=== PATIENT | female | born 1985 | race Caucasian/White ===

== ENCOUNTER → 2019-01-08 | Outpatient (CLI) | payer OTHER, SELFPAY ==
[2019-01-08 10:44] LABS: Absolute Lymphocyte Count 2.36 X10^3/uL (0.83-4.51); Absolute Neutrophil Count 6.2 X10^3/uL (2.0-7.7); Basophil# 0.06 X10^3/uL; Basophil% 0.7 % (0-1); Eosinophil# 0.24 X10^3/uL; Eosinophils% 2.6 % (0-5); Hematocrit 38.3 % (37-47); Hemoglobin 12.5 g/dL (12.0-15.0); Lymphocyte # 2.36 X10^3/ul (4.0); Lymphocyte % 25.6 % (19-41); Mean Corp Hgb Conc 32.6 g/dL (32-36); Mean Corpuscular Hgb 28.8 pg (27.0-32.0); Mean Corpuscular Volume 88.2 fL (81-99); Mean Platelet Vol. 10.4 fl (6.2-12.0); Monocyte# 0.39 X10^3/uL; Monocyte% 4.2 % (0-10); NRBC Flagged by Analyzer 0 % (0-5); Neutrophil # 6.16 X10^3/uL (2.7-7.7); Neutrophil % 66.7 % (47-70); Platelet Count 341 K/mm3 (150-450); RBC Distribution Width CV 12.6 % (11.6-14.6); RBC Distribution Width SD 40.8 fl (35.1-43.9); Red Blood Count 4.34 M/mm3 (4.2-5.4); White Blood Count 9.2 K/mm3 (4.4-11.0)
[2019-01-08 11:05] LABS: Amphetamine Urine VISTA NEGATIVE (<1000 ng/mL); Barbiturate Urine VISTA NEGATIVE (< 200 ng/mL); Benzodiazepine Urine VISTA NEGATIVE (< 200 ng/mL); Cocaine Urine VISTA NEGATIVE (< 300 ng/mL); Ecstacy Urine VISTA NEGATIVE (< 500 ng/mL); Methadone Urine VISTA NEGATIVE (< 300 ng/mL); PCP Urine VISTA NEGATIVE (< 25 ng/mL); THC Urine VISTA NEGATIVE (< 50 ng/mL); Vista UDS pH Range 5
[2019-01-08 11:22] LABS: ALB/GLOB Ratio 0.6 RATIO (0.9-2.4); AST(SGOT) 13 U/L (15-37); Alanine Aminotransfer ALT/SGPT 13 U/L (13-56); Albumin, Serum 2.8 g/dL (3.2-5.0); Alkaline Phosphatase 116 U/L (45-117); Anion Gap 8 (5-15); BUN 10 mg/dL (7-18); Calcium,Total 8.4 mg/dL (8.5-10.1); Chloride 111 mmol/L (98-107); Cholesterol 197 mg/dL (200); Creatinine, Serum 0.91 mg/dL (0.55-1.02); EST Glomerular Filtration Rate 75 mL/min (>60); Est Glom Filt Rate - Afr Amer 91 mL/min (>60); Globulin 4.6 g/dL (2.2-4.2); Glucose 88 mg/dL (74-106); High Density Lipoprotein 59 mg/dL; Potassium 3.9 mmol/L (3.5-5.1); Protein, Total 7.4 g/dL (6.4-8.2); Sodium Level 141 mmol/L (136-145); Thyroid Stim Hormone (TSH) 3.02 uIU/mL (0.358-3.74); Triglycerides 110 mg/dL; Very Low Density Lipoprotein 22 mg/dL (5-40)
[2019-01-12 09:31] LABS: Amphetamine Ur Confirm Negative (Cutoff=500)
== END | disposition home or self-care (01) ==
LOC: MFPLAB 09:03
PROVIDERS: Family Provider Family Medicine; PCP Family Medicine; Referring Provider Family Medicine; Visit Provider Family Medicine
DX: E78.5 Hyperlipidemia, unspecified (principal); E66.01 Morbid (severe) obesity due to excess calories; L65.9 Nonscarring hair loss, unspecified; F50.81 Binge eating disorder
CPT/HCPCS: 36415; 80053; 80061; 80307; 84443; 85025

== ENCOUNTER 2020-06-09 08:45 | Day surgery (SDC) | payer OTHER, SELFPAY ==
[2020-05-27 09:02] VITALS: BMI 42.8
[2020-06-09] VITALS (8 sets, daily range): BP systolic 82–115; BP diastolic 52–80; PULSE 66–86; RESP 16; TEMP 36.1–36.6; O2SAT 94–98; BMI 42.5
--- NOTE | 2020-06-09 05:18 | HP_ITS ---
Intake Vital Signs 05/27/20 Height 5 ft 4.25 in 05/27/20 Weight: 251 lb 9 oz 05/27/20 BMI 42.8 05/27/20 BP 132/85 H 05/27/20 Blood Pressure Location Rt brachial 05/27/20 Position Sitting 05/27/20 Respiration 20 H 05/27/20 Pulse 90 05/27/20 Pulse Source NIBP 05/27/20 Temp 97.1 F L 05/27/20 Temp Source Temporal 05/27/20 Pulse Oximetry (%) 99 05/27/20 Oxygen Delivery Method room air Intake Visit Reasons: EGD Chief Complaint: globus sensation Ui Ux Web Developer Required: No Is patient in pain?: No Allergies codeine Adverse Reaction (Mild, Verified 05/27/20 09:03) vomiting Medications buspirone 15 mg tablet 15 mg PO BID tab 05/27/20 [History Confirmed 05/27/20] etonogestrel 0.12 mg-ethinyl estradiol 0.015 mg/24 hr vaginal ring 1 vag ring VAGINAL ea 05/27/20 [History Confirmed 05/27/20] lisdexamfetamine 70 mg capsule 70 mg PO DAILY cap 05/27/20 [History Confirmed 05/27/20] Is last menstrual period known: No Post menopausal: No Patient : No PFSH Medical History Anxiety (Acute) Globus sensation (Acute) Surgical History History of hand surgery (Acute) Family History Mother Diabetes Father Cancer prostate Social History (Updated 05/27/20 @ 09:[address] Gilberto Leo MD) Smoking Status: Never smoker HPI HPI HPI: ANDRÉS VILLASENOR, is a 34 F who presents to the office today for HPI HPI Surgical H&P: Yes HPI: ANDRÉS VILLASENOR, is a 34 F who presents to the office today for Evaluation of a globus sensation something in her upper esophagus. This is been going on for better than a year. She has not had any obvious obstructive symptoms. They have tried Flonase as well as PPIs and has had no results from this she cannot state definitively that she has any reflux of symptoms she has not had any food stuck in her esophagus as of yet. She has never had a EGD nor has she had a barium swallow. In addition she has not seen ear nose and throat either. ROS General General: Yes weight change; no appetite, fatigue, colon cancer, breast cancer or weakness HEENT HEENT: Yes difficulty swallowing; no eye injury, eye surgery, swollen glands or hoarseness Endo Endocrine: No thyroid disease, diabetes mellitus, thyroid cancer, Hair loss, heat intolerance or cold intolerance Musc Musculoskeletal: No back problems, arthritis, rheumatoid arthritis, gout or joint pain Cardio Cardiovascular: No murmur, pacemaker, heart disease, atrial fibrillation, high blood pressure, heart attack, heart stent, palpitations, shortness of breat with exertion or chest pain Psych Psychiatric: Yes anxiety; no depression or hearing voices Resp Respiratory: No shortness of breath, No sleep apnea, No cough, No COPD, No asthma, No emphysema, No wheezing Gastro Gastrointestinal: No abdominal pain, No nausea or vomiting, No diarrhea, No constipation, No blood in stool, No acid reflux, No hemorrhoids, No ulcers, No gallbladder problem, No black,tarry stools José Antonio Hematologic: No blood thinners, No blood disorders, No bleeding, No anemia, No blood clots Neuro Neurologic: No weakness Exam Const General: no acute distress, well developed, well hydrated Orientation: oriented to person, oriented to place, oriented to time [facility] Head: normocephalic, atraumatic Ears: external ears normal Mouth: moist mucous membranes Eyes Sclera: sclerae normal Pupils: normal by confrontation Neck Neck: no lymphadenopathy noted Neck mass: No Thyroid: thyroid normal, symmetrical Chest Chest palpation & inspection: normal inspection of the chest Resp Effort & Inspection: normal respiratory effort Auscultation: clear to auscultation bilaterally Percussion: percussion normal Cardio Rate: regular rate Rhythm: regular rhythm Heart Sounds: no murmurs GI Palpation: soft, no hepatosplenomegaly, no masses, nontender Rectal Exam: other Other: Rectal exam deferred. Extrem General: normal to inspection, no clubbing, cyanosis or edema Assessment & Plan Problems 1. Oropharyngeal dysphagia R13.12 Plan I have discussed the above with the patient. I have offered the patient esophagogastroduodenoscopy for evaluation. I have explained the risks/benefits of the procedure and described the procedure. I have discussed the risks with the patient, including but not limited to: infection, bleeding, perforation of the GI tract requiring emergency surgery, inability to complete the procedure, injury to any internal organs, complications of anesthesia, etc. - the patient understands and agrees to proceed. I have answered all the patient's questions to the patient's satisfaction and the patient has no further questions. The patient has been given instructions for the colon cleansing preparation. Coding Level of Care Code Off vis,new,level 3 Diagnoses Oropharyngeal dysphagia R13.12 ??Dysphagia type: oropharyngeal phase COVID (Procedure Consent) Procedure Criteria Procedure Criteria: Yes Elective The surgeon/proceduralist and patient have discussed in detail the risk of exposure to and/or potential harm posed by the COVID-19 virus with having a surgery/procedure at this time versus the risk of? delaying the surgery/procedure. It is not possible to know either the risk of delaying the surgery or procedure or chance of getting an infection with perfect accuracy, but a joint decision was made between the patient and the surgeon/proceduralist ?to proceed at this time with the scheduled surgery/procedure as indicated on the consent form.
[2020-06-09 09:13] LABS: Internal QC Validated? YES +Cl - CLEAR BKGD; Pregnancy, Urine Negative Negative
[2020-06-09] MEDS: Lactated Ringers 1,000 ML 100 ML IV (09:20)
--- NOTE | 2020-06-09 09:42 | HP.PCM_ITS ---
Problem List (1) Globus sensation Status: Acute History and Physical Date of Admission: 06/09/20 Intake Vital Signs 05/27/20 Height 5 ft 4.25 in 05/27/20 Weight: 251 lb 9 oz 05/27/20 BMI 42.8 05/27/20 BP 132/85 H 05/27/20 Blood Pressure Location Rt brachial 05/27/20 Position Sitting 05/27/20 Respiration 20 H 05/27/20 Pulse 90 05/27/20 Pulse Source NIBP 05/27/20 Temp 97.1 F L 05/27/20 Temp Source Temporal 05/27/20 Pulse Oximetry (%) 99 05/27/20 Oxygen Delivery Method room air Intake Visit Reasons: EGD Chief Complaint: globus sensation Signs And Displays Sales Representative Required: No Is patient in pain?: No Allergies codeine Adverse Reaction (Mild, Verified 05/27/20 09:03) vomiting Medications buspirone 15 mg tablet 15 mg PO BID tab 05/27/20 [History Confirmed 05/27/20] etonogestrel 0.12 mg-ethinyl estradiol 0.015 mg/24 hr vaginal ring 1 vag ring VAGINAL ea 05/27/20 [History Confirmed 05/27/20] lisdexamfetamine 70 mg capsule 70 mg PO DAILY cap 05/27/20 [History Confirmed 05/27/20] Is last menstrual period known: No Post menopausal: No Patient : No PFSH Medical History Anxiety (Acute) Globus sensation (Acute) Surgical History History of hand surgery (Acute) Family History Mother Diabetes Father Cancer prostate Social History (Updated 05/27/20 @ 09:[address] Gilberto Leo MD) Smoking Status: Never smoker HPI HPI HPI: ANDRÉS VILLASENOR, is a 34 F who presents to the office today for HPI HPI Surgical H&P: Yes HPI: ANDRÉS VILLASENOR, is a 34 F who presents to the office today for Evaluation of a globus sensation something in her upper esophagus. This is been going on for better than a year. She has not had any obvious obstructive symptoms. They have tried Flonase as well as PPIs and has had no results from this she cannot state definitively that she has any reflux of symptoms she has not had any food stuck in her esophagus as of yet. She has never had a EGD nor has she had a barium swallow. In addition she has not seen ear nose and throat either. ROS General General: Yes weight change; no appetite, fatigue, colon cancer, breast cancer or weakness HEENT HEENT: Yes difficulty swallowing; no eye injury, eye surgery, swollen glands or hoarseness Endo Endocrine: No thyroid disease, diabetes mellitus, thyroid cancer, Hair loss, heat intolerance or cold intolerance Musc Musculoskeletal: No back problems, arthritis, rheumatoid arthritis, gout or joint pain Cardio Cardiovascular: No murmur, pacemaker, heart disease, atrial fibrillation, high blood pressure, heart attack, heart stent, palpitations, shortness of breat with exertion or chest pain Psych Psychiatric: Yes anxiety; no depression or hearing voices Resp Respiratory: No shortness of breath, No sleep apnea, No cough, No COPD, No asthma, No emphysema, No wheezing Gastro Gastrointestinal: No abdominal pain, No nausea or vomiting, No diarrhea, No constipation, No blood in stool, No acid reflux, No hemorrhoids, No ulcers, No gallbladder problem, No black,tarry stools José Antonio Hematologic: No blood thinners, No blood disorders, No bleeding, No anemia, No b lood clots Neuro Neurologic: No weakness Exam Const General: no acute distress, well developed, well hydrated Orientation: oriented to person, oriented to place, oriented to time [facility] Head: normocephalic, atraumatic Ears: external ears normal Mouth: moist mucous membranes Eyes Sclera: sclerae normal Pupils: normal by confrontation Neck Neck: no lymphadenopathy noted Neck mass: No Thyroid: thyroid normal, symmetrical Chest Chest palpation & inspection: normal inspection of the chest Resp Effort & Inspection: normal respiratory effort Auscultation: clear to auscultation bilaterally Percussion: percussion normal Cardio Rate: regular rate Rhythm: regular rhythm Heart Sounds: no murmurs GI Palpation: soft, no hepatosplenomegaly, no masses, nontender Rectal Exam: other Other: Rectal exam deferred. Extrem General: normal to inspection, no clubbing, cyanosis or edema Assessment & Plan Problems 1. Oropharyngeal dysphagia R13.12 The patient was referred by Dr. Leo for endoscopy for this globus sensation she is having. I will perform an EGD today and if it is completely normal we will refer her to ENT for this globus sensation. Patient has been trying PPI to no avail. I explained endoscopy in detail to the patient. I explained the risks including but not limited to stroke or heart attack with anesthesia, perforation of the GI tract, bleeding, infection. I explained that any of these could necessitate further emergency surgery. The patient understands and all questions were answered sufficiently. The patient wishes to proceed with procedure. Benjie Buenrostro MD Pager: [facility] [address] [place] [address], [address] [place] [address] Office:
--- NOTE | 2020-06-09 09:55 | OP.CCLET_ITS ---
06/09/2020 Bhaskar Augustin [address] [place] [address] Re : Upper GI endoscopy procedure for Carmelina Billings Dear Dr. Augustin This procedure was performed on Tuesday, June 09, 2020. My impressions and recommendations are as follows: Impressions : - Normal esophagus. - Normal stomach. - Normal examined duodenum. - No specimens collected. Recommendations : - Discharge patient to home. - Resume previous diet. - Continue present medications. - Refer to an ENT specialist. My findings are described in the full procedure note, which is enclosed. If I can be of further assistance, please feel free to contact me at Doctor phone number(s): , Work: . Sincerely, Benjie Buenrostro MD 06/09/2020 9:55:07 AM This report has been signed electronically.
--- NOTE | 2020-06-09 09:55 | OP.EGD_ITS ---
Patient Name: Carmelina Billings Procedure Date: 06/09/2020 9:40 AM Date of : 1985 Age: 34 Procedure: Upper GI endoscopy Indications: Globus sensation Providers: Benjie Buenrostro MD Referring MD: Bhaskar Augustin Medicines: Monitored Anesthesia Care Patient Profile: This is a 34 year old female. Refer to note in patient chart for documentation of history and physical. Complications: No immediate complications. Procedure: Pre-Anesthesia Assessment: - Prior to the procedure, a History and Physical was performed, and patient medications and allergies were reviewed. The patient's tolerance of previous anesthesia was also reviewed. The risks and benefits of the procedure and the sedation options and risks were discussed with the patient. All questions were answered, and informed consent was obtained. Prior Anticoagulants: The patient has taken no previous anticoagulant or antiplatelet agents. After reviewing the risks and benefits, the patient was deemed in satisfactory condition to undergo the procedure. After obtaining informed consent, the endoscope was passed under direct vision. Throughout the procedure, the patient's blood pressure, pulse, and oxygen saturations were monitored continuously. The gastroscope was introduced through the mouth, and advanced to the second part of duodenum. The upper GI endoscopy was accomplished without difficulty. The patient tolerated the procedure well. Scope In: 9:48:23 AM Scope Out: 9:50:14 AM Total Procedure Duration Time 0 hours 1 minute 51 seconds Findings: The esophagus was normal. The stomach was normal. The examined duodenum was normal. Impression: - Normal esophagus. - Normal stomach. - Normal examined duodenum. - No specimens collected. Recommendation: - Discharge patient to home. - Resume previous diet. - Continue present medications. - Refer to an ENT specialist. Procedure Code(s): --- Professional --- 05183, Esophagogastroduodenoscopy, flexible, transoral; diagnostic, including collection of specimen(s) by brushing or washing, when performed (separate procedure) Diagnosis Code(s): --- Professional --- F45.8, Other somatoform disorders CPT copyright 2017 [employer]. All rights reserved. The codes documented in this report are preliminary and upon cloth mercerizer operator review may be revised to meet current compliance requirements. Benjie Buenrostro MD 06/09/2020 9:55:07 AM This report has been signed electronically. Number of Addenda: 0 Note Initiated On: 06/09/2020 9:40 AM
== END 2020-06-09 11:15 | disposition home or self-care (01) ==
LOC: EN 08:45 → AC 08:46
PROVIDERS: Anesthesiology; PCP Family Medicine; Referring Provider Family Medicine; Visit Provider Surgery
PROC: 0DJ08ZZ Inspection of Upper Intestinal Tract, Via Natural or Artificial Opening Endoscopic (ICD-10-PCS; CPT 43235; principal; 2020-06-09 09:40)
DX: F45.8 Other somatoform disorders (principal); Z20.828 Contact with and (suspected) exposure to other viral communicable diseases; F41.9 Anxiety disorder, unspecified; F32.9 Major depressive disorder, single episode, unspecified; Z79.899 Other long term (current) drug therapy
CPT/HCPCS: 43235; 81025; 87426; C9803; J7120; J2405

== ENCOUNTER → 2021-04-29 | Outpatient (CLI) | payer OTHER, SELFPAY | END | disposition home or self-care (01) | PROVIDERS: PCP Family Medicine; Visit Provider Family Medicine | DX: B34.9 Viral infection, unspecified (principal) | CPT/HCPCS: 87635; U0005; U0003 ==

== ENCOUNTER → 2023-12-19 | Outpatient (CLI) | payer BC, SELFPAY ==
--- NOTE | 2023-12-19 16:25 | RAD_ITS ---
INDICATION: pain EXAMINATION/TECHNIQUE: X-RAY - RIGHT XR Knee Complete 4 Views or More COMPARISON: None. FINDINGS: SOFT TISSUES: Unremarkable. BONES/JOINTS: No fracture or dislocation. No significant degenerative changes. No erosive changes. RAD/Knee 4 or More Views IMPRESSION: Unremarkable views of the right knee. Electronically Signed: Kaiden Burkett DO at 2:18 EDT ,
== END | disposition home or self-care (01) ==
LOC: MTRAD 16:19
PROVIDERS: PCP Family Medicine; Referring Provider Nurse Practitioner Family; Visit Provider Nurse Practitioner Family
DX: M25.561 Pain in right knee (principal)
CPT/HCPCS: 73564

== ENCOUNTER → 2024-02-21 | Outpatient (CLI) | payer BC, SELFPAY ==
[2024-02-21 13:01] LABS: ALB/GLOB Ratio 0.7 RATIO (0.9-2.4); AST(SGOT) 11 U/L (15-37); Absolute Lymphocyte Count 2.85 X10^3/uL (0.83-4.51); Absolute Neutrophil Count 5.4 X10^3/uL (2.0-7.7); Alanine Aminotransfer ALT/SGPT 15 U/L (13-56); Alkaline Phosphatase 93 U/L (45-117); Anion Gap 8 (5-15); BUN 12 mg/dL (7-18); BUN/Creat Ratio 13.4 RATIO (10-20); Basophil# 0.06 X10^3/uL; Basophil% 0.7 % (0-1); Chloride 105 mmol/L (98-107); Cholesterol 276 mg/dL (200); Creatinine, Serum 0.89 mg/dL (0.55-1.02); EST Glomerular Filtration Rate 75 mL/min (>60); Eosinophil# 0.21 X10^3/uL; Eosinophils% 2.4 % (0-5); Est Glom Filt Rate - Afr Amer 90 mL/min (>60); Globulin 4.1 g/dL (2.2-4.2); Glucose 116 mg/dL (74-106); Hematocrit 40.1 % (37-47); High Density Lipoprotein 65 mg/dL; Lymphocyte # 2.85 X10^3/ul (0.83-4.51); Mean Corp Hgb Conc 32.4 g/dL (32-36); Mean Corpuscular Hgb 29.2 pg (27.0-32.0); Mean Corpuscular Volume 90.1 fL (81-99); Mean Platelet Vol. 9.9 fl (6.2-12.0); Monocyte% 4.5 % (0-10); NRBC Flagged by Analyzer 0 % (0-5); Neutrophil # 5.36 X10^3/uL (2.7-7.7); Neutrophil % 60.1 % (47-70); Platelet Count 390 K/mm3 (150-450); Potassium 3.8 mmol/L (3.5-5.1); Protein, Total 7.1 g/dL (6.4-8.2); RBC Distribution Width CV 13.2 % (11.6-14.6); RBC Distribution Width SD 43.3 fl (35.1-43.9); Red Blood Count 4.45 M/mm3 (4.2-5.4); Rheumatoid Factor < 10.0 IU/mL (<15); Sodium Level 139 mmol/L (136-145); Triglycerides 185 mg/dL; Very Low Density Lipoprotein 37 mg/dL (5-40); White Blood Count 8.9 K/mm3 (4.4-11.0)
[2024-02-21 13:15] LABS: Erythrocyte Sedimentation Rate 11 mm/hr (0-30)
[2024-02-22 11:10] LABS: ANTINUCLEAR ANTIBODIES DIRECT Negative (Negative)
[2024-02-22 12:23] LABS: Hemoglobin A1c 5.4 % (3.8-5.6)
== END | disposition home or self-care (01) ==
LOC: MTLAB 10:42
PROVIDERS: PCP Family Medicine; Referring Provider Family Medicine; Visit Provider Family Medicine
DX: R73.09 Other abnormal glucose (principal); E78.5 Hyperlipidemia, unspecified; M25.50 Pain in unspecified joint
CPT/HCPCS: 36415; 80053; 80061; 83036; 84443; 85025; 85652; 86038; 86431

== ENCOUNTER → 2024-03-14 | Outpatient (CLI) | payer BC, SELFPAY ==
--- NOTE | 2024-03-14 10:10 | RAD_ITS ---
STUDY: X-RAY - RIGHT HAND REASON FOR EXAM: Female, 38 years old. Pain. TECHNIQUE: 3 views of the right hand. COMPARISON: None. FINDINGS: Normal radiocarpal articulation. Normal distal radioulnar joint. Normal visualized carpal bones. Normal carpal articulations Normal carpometacarpal articulation of the thumb. Normal second through fifth carpometacarpal joints. Normal metacarpi. Normal metacarpophalangeal joint of the thumb. Normal interphalangeal joint of the thumb. Normal proximal and distal phalanges of the thumb. Normal metacarpophalangeal joints of the second through fifth fingers. Normal proximal and distal interphalangeal joints of the second through fifth fingers. Normal phalanges of the second through fifth fingers. The soft tissue structures are unremarkable. RAD/Hand Min 3 Views IMPRESSION: Normal x-ray examination of the right hand. Electronically Signed: Miguel Angel Valdez MD at 15:42 EDT ,
--- NOTE | 2024-03-14 10:10 | RAD_ITS ---
STUDY: X-RAY - LEFT SHOULDER REASON FOR EXAM: Female, 38 years old. PAIN TECHNIQUE: 4 views of the left shoulder. COMPARISON: None. FINDINGS: Normal glenohumeral articulation. Normal acromioclavicular joint. Normal acromion. Normal humeral head and visualized proximal humerus. The soft tissue structures are unremarkable. There is no demonstrated fracture. Normal visualized pulmonary apex. RAD/Shoulder min 2 Views IMPRESSION: Normal x-ray examination of the left shoulder. Electronically Signed: Miguel Angel Valdez MD at 15:40 EDT ,
--- NOTE | 2024-03-14 10:10 | RAD_ITS ---
STUDY: X-RAY - RIGHT SHOULDER REASON FOR EXAM: Female, 38 years old. Pain. TECHNIQUE: 4 views of the right shoulder. COMPARISON: None. FINDINGS: Normal glenohumeral articulation. Normal acromioclavicular joint. Normal acromion. Normal humeral head and visualized proximal humerus. The soft tissue structures are unremarkable. There is no demonstrated fracture. Normal visualized pulmonary apex. RAD/Shoulder min 2 Views IMPRESSION: Normal x-ray examination of the right shoulder. Electronically Signed: Miguel Angel Valdez MD at 15:39 EDT ,
--- NOTE | 2024-03-14 10:10 | RAD_ITS ---
STUDY: X-RAY - LEFT HAND REASON FOR EXAM: Female, 38 years old. PAIN TECHNIQUE: 3 views of the left hand. COMPARISON: None. FINDINGS: Normal radiocarpal articulation. Normal distal radioulnar joint. Normal visualized carpal bones. Normal carpal articulations. Normal carpometacarpal articulation of the thumb. Normal second through fifth carpometacarpal joints. Normal metacarpi. Normal metacarpophalangeal joint of the thumb. Normal interphalangeal joint of the thumb. Normal proximal and distal phalanges of the thumb. Normal metacarpophalangeal joints of the second through fifth fingers. Normal proximal and distal interphalangeal joints of the second through fifth fingers. Normal phalanges of the second through fifth fingers. The soft tissue structures are unremarkable. RAD/Hand Min 3 Views IMPRESSION: Normal x-ray examination of the left hand. Electronically Signed: Miguel Angel Valdez MD at 15:41 EDT ,
[2024-03-14 12:44] LABS: Hemoglobin A1c 5.3 % (3.8-5.6)
[2024-03-14 12:47] LABS: Uric Acid 4.4 mg/dL (2.6-6.0)
[2024-03-15 16:10] LABS: Lyme Scn Total Ab w/Rflx Negative (Negative)
== END | disposition home or self-care (01) ==
PROVIDERS: PCP Family Medicine; Referring Provider Family Medicine; Visit Provider Family Medicine
DX: R73.09 Other abnormal glucose (principal); M79.641 Pain in right hand; M25.511 Pain in right shoulder; M25.512 Pain in left shoulder; M79.642 Pain in left hand
CPT/HCPCS: 36415; 73030; 73130; 83036; 84550; 86618